=== PATIENT | female | born 1945 | race Caucasian/White ===

== ENCOUNTER 2017-05-14 05:20 | Emergency (ER) | payer OTHER, MEDICARE ==
[~2017-05-14] VITALS: Ht 162.6 cm; Wt 79.5 kg
[2017-05-14] MEDS ORDERED: KETOROLAC 30 MG/1 ML ONE (06:29)
[2017-05-14] MEDS ORDERED: KETOROLAC 30 MG/1 ML IM ONE (06:30)
[2017-05-14] MEDS ORDERED: METF500T4 PO (06:33)
[2017-05-14] MEDS ORDERED: LISI2.5T PO (06:34)
[2017-05-14] MEDS ORDERED: MELO7.5T31 PO (06:34)
[2017-05-14] MEDS ORDERED: TRAV5DRO EACHEYE (06:35)
[2017-05-14] MEDS ORDERED: HYDR12.53 PO (06:35)
[2017-05-14] MEDS ORDERED: OMEP10CA4 PO (06:36)
[2017-05-14] MEDS ORDERED: ATOR-2 PO (06:36)
[2017-05-14] MEDS ORDERED: DULO20CA45 PO (06:37)
[2017-05-14 08:24] VITALS: BP 122/67
== END 2017-05-14 08:26 | disposition home or self-care (01) ==
LOC: ED 08:18
DX: M79.605 Pain in left leg (principal); M79.89 Other specified soft tissue disorders; E11.9 Type 2 diabetes mellitus without complications; I10 Essential (primary) hypertension; Z90.49 Acquired absence of other specified parts of digestive tract; Z90.710 Acquired absence of both cervix and uterus; Z90.89 Acquired absence of other organs
CPT/HCPCS: 93971; 96372; 99284; J1885

== ENCOUNTER → 2017-11-30 | Outpatient (CLI) | payer OTHER, MEDICARE ==
[~2017-11-30] MED LIST: ATOR-2 PO; DULO20CA45 PO; HYDR12.53 PO; LISI2.5T PO; MELO7.5T31 PO; METF500T5 PO; OMEP10CA4 PO; TRAV5DRO EACHEYE
[2017-11-30 10:23] LABS: BASOPHILS # (AUTO) 0.08 x10^3/uL (0-0.1); BASOPHILS % (AUTO) 1 % (0-1); EOSINOPHILS # (AUTO) 0.21 x10^3/uL (0-0.4); EOSINOPHILS % (AUTO) 3 % (1-7); LYMPHOCYTES # (AUTO) 2.05 x10^3/uL (1-3.4); LYMPHOCYTES % (AUTO) 31 % (22-44); MD NO; MEAN CORPUSCULAR HEMOGLOBIN 25.1 pg (27.0-34.8); MEAN CORPUSCULAR VOLUME 78.5 fL (80-100); MEAN PLATELET VOLUME 8.8 fL (7.4-10.4); MONOCYTES # (AUTO) 0.58 x10^3/uL (0.2-0.8); MONOCYTES % (AUTO) 9 % (2-9); NEUTROPHILS % (AUTO) 57 % (42-75); PLATELET COUNT 336 x10^3/uL (130-400); RED BLOOD COUNT 4.12 x10^6/uL (3.82-5.3)
[2017-11-30 10:28] LABS: ALBUMIN 3.5 g/dL (3.4-5.0); CALCIUM 8.9 mg/dL (8.5-10.1); CHLORIDE 105 mmol/L (98-107)
[2017-11-30 10:33] LABS: ALANINE AMINOTRANSFERASE 28 U/L (12-78); ALKALINE PHOSPHATASE 72 U/L (45-117); ANION GAP 8 mmol/L (5-15); BILIRUBIN,TOTAL 0.4 mg/dL (0.2-1.0); CHOLESTEROL, TOTAL 136 mg/dL (140-239); CREATININE 1.13 mg/dL (0.55-1.02); HDL CHOL % 34 % (28-40); HDL CHOLESTEROL (DIRECT) 46 mg/dL (40-60); LDL CHOLESTEROL,CALCULATED 62 mg/dL (54-169); LDL/HDL RATIO 1.3 (0.5-3.0); TOTAL PROTEIN 7.4 g/dL (6.4-8.2); TRIGLYCERIDES 140 mg/dL (50-200); VLDL CHOLESTEROL 28 mg/dL (0-25)
[2017-11-30 11:15] LABS: HEMOGLOBIN A1C 7.1 % (4.2-6.3)
== END | disposition home or self-care (01) ==
LOC: LAB 09:41
PROVIDERS: ATTEND Family Medicine
DX: I25.9 Chronic ischemic heart disease, unspecified (principal); K44.9 Diaphragmatic hernia without obstruction or gangrene; E66.9 Obesity, unspecified
CPT/HCPCS: 36415; 71046; 80053; 80061; 83036; 83880; 84443; 85025; 85362; 85379; 93017; 93350

== ENCOUNTER → 2018-01-28 | Outpatient (CLI) | payer OTHER, MEDICARE ==
[~2018-01-28] MED LIST changes: +METF500T17 PO; -METF500T5 PO
[2018-01-28 22:10] LABS: BASOPHILS # (AUTO) 0.07 x10^3/uL (0-0.1); BASOPHILS % (AUTO) 1 % (0-1); EOSINOPHILS # (AUTO) 0.29 x10^3/uL (0-0.4); EOSINOPHILS % (AUTO) 4 % (1-7); LYMPHOCYTES # (AUTO) 3.22 x10^3/uL (1-3.4); LYMPHOCYTES % (AUTO) 40 % (22-44); MD NO; MEAN CORPUSCULAR HEMOGLOBIN 24.9 pg (27.0-34.8); MEAN CORPUSCULAR HGB CONC 32.1 g/dL (32.4-35.8); MEAN CORPUSCULAR VOLUME 77.4 fL (80-100); MONOCYTES # (AUTO) 0.83 x10^3/uL (0.2-0.8); MONOCYTES % (AUTO) 10 % (2-9); NEUTROPHILS % (AUTO) 45 % (42-75); PLATELET COUNT 399 x10^3/uL (130-400); RED BLOOD COUNT 3.89 x10^6/uL (3.82-5.3); RED CELL DISTRIBUTION WIDTH 16.6 % (9.6-15.2)
== END | disposition home or self-care (01) ==
LOC: LAB 21:45
PROVIDERS: ATTEND Family Medicine
DX: D64.9 Anemia, unspecified (principal)
CPT/HCPCS: 36415; 82728; 83540; 83550; 85025

== ENCOUNTER 2018-06-21 14:34 | Emergency (ER) | payer OTHER, MEDICARE ==
[~2018-06-21] VITALS: Ht 162.6 cm; Wt 82.1 kg
[2018-06-21] VITALS (9 sets, daily range): BP systolic 141–167; BP diastolic 60–112
[~2018-06-21 14:34] MED LIST changes: +HYDR12.517 PO; -HYDR12.53 PO
--- NOTE | 2018-06-21 15:08 | NUR ---
pt in gown in [facility] with erp at bs. pt educated on er process and verbalizes understanding. pt attached to vs machines and quality assurance monitor final.
[2018-06-21 15:38] LABS: BASOPHILS % (AUTO) 2 % (0-1); EOSINOPHILS # (AUTO) 0.23 x10^3/uL (0-0.4); EOSINOPHILS % (AUTO) 4 % (1-7); LYMPHOCYTES # (AUTO) 1.55 x10^3/uL (1-3.4); LYMPHOCYTES % (AUTO) 24 % (22-44); MD NO; MEAN CORPUSCULAR HEMOGLOBIN 24.4 pg (27.0-34.8); MEAN CORPUSCULAR HGB CONC 32.1 g/dL (32.4-35.8); MEAN CORPUSCULAR VOLUME 75.9 fL (80-100); MEAN PLATELET VOLUME 8.3 fL (7.4-10.4); MONOCYTES # (AUTO) 0.56 x10^3/uL (0.2-0.8); MONOCYTES % (AUTO) 9 % (2-9); NEUTROPHILS % (AUTO) 63 % (42-75); PLATELET COUNT 370 x10^3/uL (130-400); RED CELL DISTRIBUTION WIDTH 17.8 % (9.6-15.2)
[2018-06-21 15:40] LABS: INTERNATIONAL NORMALIZED RATIO 1.01 (0.93-1.1); PROTHROMBIN TIME 10.7 Seconds (9.6-11.5)
[2018-06-21 15:42] LABS: ALBUMIN 3.4 g/dL (3.4-5.0); ANION GAP 7 mmol/L (5-15); CALCIUM 9.4 mg/dL (8.5-10.1); CHLORIDE 108 mmol/L (98-107); CREATININE 1.11 mg/dL (0.55-1.02)
[2018-06-21 15:46] LABS: TROPONIN I < 0.015 ng/mL (0.000-0.045)
--- NOTE | 2018-06-21 16:54 | NUR ---
Pt vss and updated in emr. pt calm in gurney at this time. pt verbalizes understanding of need for prbc and will obtain consent. pt denies any other needs at the moment. call light is within reach.
--- NOTE | 2018-06-21 18:50 | NUR ---
received report from ABDI Esquivel.
--- NOTE | 2018-06-21 19:30 | NUR ---
2nd unit PBRC mony.
--- NOTE | 2018-06-21 19:50 | NUR ---
BS REPORT OF PT TO ABDI CARBAJAL, AND ASSUMING CARE OF PT.
--- NOTE | 2018-06-21 20:03 | NUR ---
sandwich provided to patient.
--- NOTE | 2018-06-21 20:30 | NUR ---
2nd unit PRBC finished.
--- NOTE | 2018-06-21 20:35 | NUR ---
patient's Vital signs stable. patient states feeling much better. no more SOB. no signs of reaction to blood transfusion. discharged with instruction. verbalized understanding.
== END 2018-06-21 20:38 | disposition home or self-care (01) ==
LOC: ED 20:22
DX: D50.9 Iron deficiency anemia, unspecified (principal); I10 Essential (primary) hypertension; E11.9 Type 2 diabetes mellitus without complications; J45.909 Unspecified asthma, uncomplicated; Z90.49 Acquired absence of other specified parts of digestive tract; Z90.710 Acquired absence of both cervix and uterus
CPT/HCPCS: 36415; 36430; 71046; 80048; 82040; 83880; 84484; 85025; 85610; 86850; 86900; 86923; 93005; 99285; P9016

== ENCOUNTER → 2018-06-29 | Outpatient (CLI) | payer OTHER, MEDICARE ==
[2018-06-29 07:33] LABS: BASOPHILS # (AUTO) 0.13 x10^3/uL (0-0.1); BASOPHILS % (AUTO) 2 % (0-1); EOSINOPHILS # (AUTO) 0.42 x10^3/uL (0-0.4); EOSINOPHILS % (AUTO) 6 % (1-7); LYMPHOCYTES # (AUTO) 2.34 x10^3/uL (1-3.4); LYMPHOCYTES % (AUTO) 31 % (22-44); MD NO; MEAN CORPUSCULAR HEMOGLOBIN 24.8 pg (27.0-34.8); MEAN CORPUSCULAR HGB CONC 31.2 g/dL (32.4-35.8); MEAN CORPUSCULAR VOLUME 79.3 fL (80-100); MEAN PLATELET VOLUME 8.6 fL (7.4-10.4); MONOCYTES # (AUTO) 0.81 x10^3/uL (0.2-0.8); MONOCYTES % (AUTO) 11 % (2-9); NEUTROPHILS # (AUTO) 3.89 x10^3/uL (1.8-6.8); NEUTROPHILS % (AUTO) 51 % (42-75); PLATELET COUNT 321 x10^3/uL (130-400); RED BLOOD COUNT 4.48 x10^6/uL (3.82-5.3); RED CELL DISTRIBUTION WIDTH 18.8 % (9.6-15.2)
[2018-06-29 08:22] LABS: FOLATE LEVEL > 20.0 ng/mL (3.1-17.5)
== END | disposition home or self-care (01) ==
LOC: LAB 07:13
PROVIDERS: ATTEND Physician Assistant
DX: D50.9 Iron deficiency anemia, unspecified (principal); Z88.5 Allergy status to narcotic agent
CPT/HCPCS: 36415; 82607; 82746; 85025

== ENCOUNTER → 2018-08-31 | Outpatient (CLI) | payer OTHER, MEDICARE ==
[2018-08-31 12:51] LABS: RED BLOOD COUNT 4.07 x10^6/uL (3.82-5.3)
[2018-08-31 12:55] LABS: MEAN CORPUSCULAR HGB CONC 33.1 g/dL (32.4-35.8); MEAN CORPUSCULAR VOLUME 87.6 fL (80-100); MEAN PLATELET VOLUME 9.2 fL (7.4-10.4); PLATELET COUNT 309 x10^3/uL (130-400); RED BLOOD COUNT 4.09 x10^6/uL (3.82-5.3); RED CELL DISTRIBUTION WIDTH 22.5 % (9.6-15.2)
[2018-08-31 12:59] LABS: % IRON SATURATION 14 % (20-55); ALANINE AMINOTRANSFERASE 27 U/L (12-78); ALBUMIN 3.7 g/dL (3.4-5.0); ANION GAP 7 mmol/L (5-15); CHLORIDE 108 mmol/L (98-107); IRON LEVEL 55 mcg/dL (50-170); TOTAL IRON BINDING CAPACITY 381 mcg/dL (250-450)
[2018-08-31 13:02] LABS: ALKALINE PHOSPHATASE 78 U/L (45-117); BILIRUBIN,TOTAL 0.3 mg/dL (0.2-1.0); TOTAL PROTEIN 7.2 g/dL (6.4-8.2)
[2018-08-31 13:42] LABS: BASOPHILS # (AUTO) 0.06 x10^3/uL (0-0.1); BASOPHILS % (AUTO) 1 % (0-1); EOSINOPHILS # (AUTO) 0.26 x10^3/uL (0-0.4); EOSINOPHILS % (AUTO) 4 % (1-7); LYMPHOCYTES # (AUTO) 2.09 x10^3/uL (1-3.4); LYMPHOCYTES % (AUTO) 30 % (22-44); MD SCAN; MONOCYTES # (AUTO) 0.81 x10^3/uL (0.2-0.8); MONOCYTES % (AUTO) 12 % (2-9); NEUTROPHILS # (AUTO) 3.82 x10^3/uL (1.8-6.8); NEUTROPHILS % (AUTO) 54 % (42-75)
[2018-08-31 14:04] LABS: ABSOLUTE RETICS # 0.07 x10^6/uL (0.5-2.5); RETICULOCYTE COUNT % 1.72 % (0.5-1.5)
[2018-08-31 16:11] LABS: MICROSCOPIC NOT IND
== END | disposition home or self-care (01) ==
LOC: RAD 12:08
PROVIDERS: ATTEND Internal Medicine Hematology & Oncology
DX: D50.9 Iron deficiency anemia, unspecified (principal); R14.0 Abdominal distension (gaseous); M25.511 Pain in right shoulder
CPT/HCPCS: 36415; 80053; 81003; 82728; 82784; 83516; 83540; 83550; 84156; 85025; 85045; 86255

== ENCOUNTER → 2019-04-28 | Outpatient (CLI) | payer OTHER, MEDICARE ==
[~2019-04-28] MED LIST changes: -OMEP10CA4 PO; +OMEP10CA5 PO
== END | disposition home or self-care (01) ==
LOC: LAB 07:29
PROVIDERS: ATTEND Internal Medicine Hematology & Oncology
DX: D50.9 Iron deficiency anemia, unspecified (principal)
CPT/HCPCS: 36415; 86480